=== PATIENT | female | born 2000 | race Caucasian/White ===

== ENCOUNTER 2022-03-12 12:48 | Inpatient (IN) ==
[2022-03-12] MEDS ORDERED: OXYTOCIN/LR 20 UNIT/1,000 ML BAG IV ONE ×2 (13:17→22:54)
[2022-03-12] MEDS ORDERED: CARBOPROST TROMETHAMINE 250 MCG/ML AMP IM PRN (13:17)
[2022-03-12] MEDS ORDERED: METHYLERGONOVINE 0.2 MG/1 ML AMP IM PRN (13:17)
[2022-03-12] MEDS ORDERED: TRANEXAMIC ACID 1,000 MG in SODIUM CHLORIDE 0.9% 100 ML IV PRN (13:17)
[2022-03-12] MEDS ORDERED: BUTORPHANOL 2 MG/ML VIAL IV PRN (13:17)
[2022-03-12] MEDS ORDERED: ONDANSETRON 4 MG/2 ML VIAL IV PRN ×2 (13:17→22:54)
[2022-03-12] MEDS ORDERED: MEPERIDINE 50 MG/1 ML VIAL IV PRN (13:17)
[2022-03-12] MEDS ORDERED: miSOPROStoL 200 MCG TABLET RECTAL PRN (13:17)
[2022-03-12] MEDS ORDERED: OXYTOCIN/LR 20 UNIT/1,000 ML BAG IV SCH (13:30)
[2022-03-12] MEDS: LACTATED RINGERS 1,000 ML IV SCH ×2 (13:38→15:20)
[2022-03-12] MEDS ORDERED: ePHEDrine 50 MG/ML VIAL IV PRN (14:11)
[2022-03-12] MEDS ORDERED: NALOXONE 0.4 MG/ML VIAL IV PRN (14:11)
[2022-03-12] MEDS ORDERED: CITRIC ACID/SODIUM CITRATE 30 ML UDCUP PO ONE (14:11)
[2022-03-12] MEDS ORDERED: hydrOXYzine HCL 25 MG/1 ML VIAL IM PRN (14:11)
[2022-03-12] MEDS ORDERED: PROMETHAZINE 25 MG/1 ML VIAL IM ONE (14:11)
[2022-03-12] MEDS ORDERED: diphenhydrAMINE 50 MG/1 ML VIAL IV PRN ×2 (14:11)
[2022-03-12] MEDS ORDERED: LACTATED RINGERS 500 ML IV ONE (14:11)
[2022-03-12] MEDS ORDERED: FAMOTIDINE 20 MG/2 ML VIAL IV ONE (14:11)
[2022-03-12 14:17] LABS: Basophils % 0.2 % (0.0-0.8); Eosinophils % 0.1 % (0.00-10.9); Hematocrit 36.9 VOL% (35.7-47.0); Hemoglobin 12.2 GM/DL (12.0-16.0); Immature Granulocytes % 0.5 %; Immature Granulocytes Absolute 0.06 #; Lymphocytes # 1.1 10*3/uL (1.4-4.0); Lymphocytes % 9.2 % (21.3-54.2); Mean Corpuscular HGB Conc 33.1 GM/DL (32-36); Mean Corpuscular Volume 97.9 FL (87-102); Mean Platelet Volume 11.4 FL (9.6-12.0); Monocytes # 0.6 10*3/uL (0.11-0.8); Monocytes % 5.4 % (1.7-12.7); Neutrophils % 84.6 % (38.7-73.9); Platelet Count 142 T/CUMM (130-400); Red Blood Count 3.77 MC/CUMM (3.8-5.5); Red Cell Distribution Width 12.5 % (9.3-17.3); White Blood Count 11.8 T/CUMM (4-12)
[2022-03-12] MEDS ORDERED: fentaNYL 2 MCG/ROPIV 0.2% EPID 100 ML EPIDURAL SCH (14:30)
[2022-03-12 16:40] LABS: Urine Appearance Clear (Clear); Urine Color Yellow (Yellow)
[2022-03-12 16:41] LABS: Bilirubin,Urine Negative (Negative); Blood, Urine Negative (Negative); Glucose,Urine (UA) Negative (Negative); Nitrite,Urine Negative (Negative); Protein,Urine Negative (Negative); Urine Urobilinogen 0.2 eU/dL (<2.0); Urine pH 7.5 (4.5-8.0)
[2022-03-12 16:42] LABS: Ketones,Urine 40 mg/dL (Negative)
[2022-03-12 16:44] LABS: Bacteria,Urine Occasional /HPF (Few); Mucus,Urine Occasional /LPF (Occasional); RBC,Urine 1 /HPF (0-4)
[2022-03-12] MEDS ORDERED: miSOPROStoL 200 MCG TABLET ONE (19:30)
[2022-03-12] MEDS ORDERED: TRANEXAMIC ACID 1,000 MG/10 ML VIAL ONE (19:30)
[2022-03-12] MEDS ORDERED: SODIUM CHLORIDE 0.9% 0 ML IV ONE (19:30)
[2022-03-12] MEDS ORDERED: CARBOPROST TROMETHAMINE 250 MCG/ML AMP IM ONE (19:31)
[2022-03-12] MEDS ORDERED: METHYLERGONOVINE 0.2 MG/1 ML AMP ONE (19:31)
[2022-03-12] MEDS ORDERED: LIDOCAINE 1% 20 ML VIAL IM ONE (19:45)
[2022-03-12 20:22] LABS: Cord Arterial Blood HCO3 19.7 MMOL/L
[2022-03-12 20:25] LABS: Cord Venous Blood HCO3 18.9 MMOL/L; Cord Venous Blood PCO2 53.8 MMHG; Cord Venous Blood PO2 19.1
[2022-03-12] MEDS ORDERED: RHO(D) IMMUNE GLOBULIN 300 MCG SYRINGE IM ONE (22:54)
[2022-03-12] MEDS ORDERED: oxyCODONE/ACETAMINOPHEN 5-325 MG TABLET PO PRN (22:54)
[2022-03-12] MEDS ORDERED: BISACODYL 10 MG SUPP RECTAL PRN (22:54)
[2022-03-12] MEDS ORDERED: BENZOCAINE 20%/MENTHOL 0.5% SPRAY 56 GM CAN TOP PRN (22:54)
[2022-03-12] MEDS ORDERED: DIPH/TET/ACEL PERT BOOSTER VACCINE 0.5 ML VIAL IM ONE (22:54)
[2022-03-12] MEDS ORDERED: ACETAMINOPHEN 325 MG TABLET PO PRN (22:54)
[2022-03-12] MEDS ORDERED: HYDROCORTISONE 2.5% RECTAL CREAM 30 GM TUBE TOP PRN (22:54)
[2022-03-12] MEDS ORDERED: WITCH HAZEL PADS 100/JAR TOP PRN (22:54)
[2022-03-12] MEDS ORDERED: LANOLIN 50% CREAM 0.3 OZ TUBE TOP PRN (22:54)
[2022-03-12] MEDS ORDERED: MEASLES/MUMPS/RUBELLA VACCINE 0.5 ML VIAL SUBCUT ONE (22:54)
[2022-03-12] MEDS: IBUPROFEN 800 MG TABLET PO PRN (23:10)
[2022-03-13] MEDS: oxyCODONE/ACETAMINOPHEN 5-325 MG TABLET PO PRN ×2 (03:47→20:30)
[2022-03-13] MEDS: IBUPROFEN 800 MG TABLET PO PRN ×3 (06:16→17:49)
[2022-03-13 06:19] LABS: Basophils % 0.2 % (0.0-0.8); Eosinophils % 0.1 % (0.00-10.9); Hematocrit 30.3 VOL% (35.7-47.0); Immature Granulocytes % 0.6 %; Immature Granulocytes Absolute 0.09 #; Lymphocytes # 2.2 10*3/uL (1.4-4.0); Lymphocytes % 13.6 % (21.3-54.2); Mean Corpuscular HGB Conc 33.3 GM/DL (32-36); Mean Platelet Volume 12.3 FL (9.6-12.0); Monocytes # 1.4 10*3/uL (0.11-0.8); Monocytes % 8.8 % (1.7-12.7); Neutrophils % 76.7 % (38.7-73.9); Red Blood Count 3.06 MC/CUMM (3.8-5.5); Red Cell Distribution Width 12.7 % (9.3-17.3)
[2022-03-13 06:21] LABS: Hemoglobin 10.1 GM/DL (12.0-16.0); Platelet Count 127 T/CUMM (130-400); White Blood Count 16.3 T/CUMM (4-12)
[2022-03-13] MEDS: DOCUSATE SODIUM 100 MG CAPSULE PO SCH ×2 (10:04→20:30)
[2022-03-14] MEDS: IBUPROFEN 800 MG TABLET PO PRN (06:45)
[2022-03-14 07:33] VITALS: BP 108/55
[2022-03-14] MEDS: DOCUSATE SODIUM 100 MG CAPSULE PO SCH (09:40)
== END 2022-03-14 12:35 | disposition home or self-care (01) | DRG 807 ==
LOC: N.OBOUT 12:48 → N.LD 13:13 → N.OB 22:45
PROVIDERS: ADMIT Specialist; ATTEND Specialist